=== PATIENT | female | born 1935 | race Asian ===

== ENCOUNTER 2019-04-13 09:20 | Emergency (ER) | payer BC ==
[2019-04-13] MEDS: SOD CHLORIDE 0.9% 500 ML IV (09:56)
[2019-04-13 10:03] LABS: ADD MAN DIFF? NO
[2019-04-13 10:08] LABS: BASOPHILS % 0.4 % (0.0-2.0); EOSINOPHILS # 0.3 10^3/ul (0.0-0.5); EOSINOPHILS % 4.1 % (0.0-7.0); HEMATOCRIT 41.5 % (37.0-47.0); HEMOGLOBIN 14.1 g/dl (12.0-16.0); LYMPHOCYTES # 2.5 10^3/ul (0.8-2.9); LYMPHOCYTES % 34.7 % (15.0-51.0); MEAN CORPUSCULAR HEMOGLOBIN 30.5 pg (29.0-33.0); MEAN CORPUSCULAR VOLUME 89.6 fl (82.0-101.0); MEAN PLATELET VOLUME 9.5 fl (7.4-10.4); MONOCYTE # 0.6 10^3/ul (0.3-0.9); MONOCYTES % 8.1 % (0.0-11.0); NEUTROPHIL # 3.8 10^3/ul (1.6-7.5); NEUTROPHILS % 52.6 % (39.0-77.0); PLATELET COUNT 205 10^3/UL (140-415); RED BLOOD COUNT 4.63 10^6/ul (4.20-5.40); RED CELL DISTRIBUTION WIDTH 11.9 % (11.5-14.5)
[2019-04-13 10:08] LABS: WHITE BLOOD COUNT 7.3 10^3/ul (4.8-10.8)
[2019-04-13 10:34] LABS: ANION GAP 9 (5-13); BLOOD UREA NITROGEN 20 mg/dl (7-20); CALCIUM 10.1 mg/dl (8.4-10.2); CARBON DIOXIDE 31 mmol/L (21-31); CHLORIDE 96 mmol/L (97-110); CREATININE 0.88 mg/dl (0.44-1.00); GLUCOSE 192 mg/dl (70-220); POTASSIUM 4.4 mmol/L (3.5-5.1); SODIUM 136 mmol/L (135-144)
[2019-04-13 10:46] LABS: TROPONIN-I < 0.012 ng/ml (0.000-0.120)
[2019-04-13 11:20] LABS: UR BACTERIA MANY /HPF (NONE SEEN); UR RBC 2 /HPF (0-5); UR SQUAMOUS EPITHELIAL CELL FEW /HPF (FEW); UR WBC 62 /HPF (0-5)
[2019-04-13 11:30] LABS: ADD UMIC YES; UR ASCORBIC ACID NEGATIVE (NEGATIVE); UR BILIRUBIN (Dip) NEGATIVE (NEGATIVE); UR BLOOD (Dip) 1+ mg/dL (NEGATIVE); UR CLARITY SLIGHTLY CLOUDY (CLEAR); UR COLOR YELLOW (YELLOW); UR GLUCOSE (Dip) NEGATIVE (NEGATIVE); UR KETONES (Dip) NEGATIVE (NEGATIVE); UR LEUKOCYTE ESTERASE (Dip) 3+ Leu/ul (NEGATIVE); UR NITRITE (Dip) NEGATIVE (NEGATIVE); UR SPECIFIC GRAVITY (Dip) 1.003 (1.003-1.030); UR TOTAL PROTEIN (Dip) NEGATIVE (NEGATIVE); UR UROBILINOGEN (Dip) NEGATIVE (NEGATIVE)
== END 2019-04-13 11:51 | disposition home or self-care (01) ==
LOC: E/R 11:51
DX: N39.0 Urinary tract infection, site not specified (principal); E11.9 Type 2 diabetes mellitus without complications; Z79.4 Long term (current) use of insulin
CPT/HCPCS: 36415; 70450; 71045; 80048; 81001; 84484; 85025; 93005; 99285-25